=== PATIENT | female | born 1975 | race Caucasian/White ===

== ENCOUNTER 2017-02-07 05:54 | Inpatient (IN) | payer BC ==
[2017-02-07] VITALS (22 sets, daily range): BP systolic 100–131; BP diastolic 54–70; PULSE 76–120; RESP 11–22; Ht 157.5 cm; Wt 74.6 kg
[~2017-02-07] VITALS: Ht 157.5 cm; Wt 74.6 kg
[~2017-02-07 05:54] MED LIST: LEVO88TA3 PO
[2017-02-07] MEDS ORDERED: CEFAZOLIN 2 GM/50 ML (PMX) 50 ML IVPB SCH (06:49)
[2017-02-07] MEDS ORDERED: VANCOMYCIN 500MG/NS (PMX) 100 ML IVPB SCH (07:00)
[2017-02-07] MEDS ORDERED: ROCURONIUM 50 MG INJ ONE ×2 (07:00→07:11)
[2017-02-07] MEDS ORDERED: LACTATED RINGER'S 1,000 ML IV* SCH (07:00)
[2017-02-07] MEDS ORDERED: POLYMYXIN/BACITRACIN 1L IRRIG ONE (07:02)
--- NOTE | 2017-02-07 07:07 | HPN ---
Date/Time of Note Date/Time of Note DATE: 02/07/17 TIME: 07:07 Interval H&P Admission Note Pt. seen H&P reviewed: No system changes COOKIE NUNEZ MD Feb 07, 2017 07:07
[2017-02-07] MEDS ORDERED: MIDAZOLAM 1 MG/ML 2 ML INJ ONE (07:11)
[2017-02-07] MEDS ORDERED: FENTAnyl 50 MCG/ML VIAL ONE (07:11)
[2017-02-07] MEDS ORDERED: HYDROmorphONE 2 MG/ML SYG ONE (07:11)
[2017-02-07] MEDS ORDERED: ONDANSETRON 4 MG INJ ONE (07:11)
[2017-02-07] MEDS ORDERED: PROPOFOL 20 ML ONE (07:11)
[2017-02-07] MEDS ORDERED: SCOPOLAMINE 1.5 MG PATCH ONE (07:12)
[2017-02-07] MEDS ORDERED: DEXAMETHASONE 4 MG/ML 1 ML INJ ONE (07:12)
[2017-02-07] MEDS ORDERED: BUPIVACAINE 0.5%/EPI (SDV) 30 ML INJ ONE (07:13)
[2017-02-07] MEDS ORDERED: THROMBIN 5000 UNIT VIAL ONE (07:13)
[2017-02-07] MEDS ORDERED: METOCLOPRAMIDE 10 MG INJ ONE (08:06)
[2017-02-07] MEDS ORDERED: FAMOTIDINE 20 MG INJ ONE (08:07)
[2017-02-07] MEDS ORDERED: SUGAMMADEX SODIUM 200 MG/2 ML VIAL IV ONE (08:58)
[2017-02-07] MEDS ORDERED: EPHEDrine SULFATE 50 MG/5 ML SYG ONE (09:55)
[2017-02-07] MEDS ORDERED: LABETALOL HCL 20MG INJ IV PRN (10:30)
[2017-02-07] MEDS ORDERED: FENTAnyl 50 MCG/ML VIAL IV PRN ×2 (10:30)
[2017-02-07] MEDS ORDERED: hydrALAzine 20 MG INJ IV PRN (10:30)
[2017-02-07] MEDS ORDERED: MIDAZOLAM 1 MG/ML 2 ML INJ IV PRN (10:30)
[2017-02-07] MEDS ORDERED: ONDANSETRON 4 MG INJ IV PRN ×2 (10:30→14:30)
[2017-02-07] MEDS ORDERED: MEPERIDINE 25 MG INJ IV PRN (10:30)
[2017-02-07] MEDS ORDERED: HYDROmorphONE (0.2 MG/ML) 10ML SYG IV PRN (10:30)
[2017-02-07] MEDS ORDERED: CEFAZOLIN 1 GM INJ ONE (11:47)
--- NOTE | 2017-02-07 14:22 | OPR ---
Date/Time of Note Date/Time of Note DATE: 02/07/17 TIME: 14:07 Operative Report Free Text/Dictation DATE OF OPERATION: 02/07/2017 PREOPERATIVE DIAGNOSES: Spondylolisthesis L4-5 with stenosis and right sided L4 and L5 radiculopathy POSTOPERATIVE DIAGNOSES: Spondylolisthesis L4-5 with stenosis and right sided L4 and L5 radiculopathy OPERATION PERFORMED: 1. Anterior lumbar interbody fusion via transpsoas approach L4-5 2. Placement of anterior interbody device L4-5 3. Placement of posterior spinal segmental instrumentation L4-5 4. Posterior spinal fusion L4-5 5. Use of morselized allograft bone. SURGEON: Cookie Nunez MD ANESTHESIA: General endotracheal. ESTIMATED BLOOD LOSS: <50 cc SURGICAL INDICATION: The patient is a 41 year-old woman who presents with an increasing history of back and right leg pain. She has a past surgical history of a L4-5 decompression and later developed a spondylolisthesis. The patient was found to have an unstable spondylolisthesis at L4-5 with associated stenosis. The patient had failed conservative treatments. Risks, benefits and alternatives to an anterior and posterior spinal fusion with instrumentation were explained to the patient including but not exclusive of bleeding, infection , visceral injury, nerve injury, nonunion, instrumentation failure, lack of symptom relief, myocardial infarction, stroke, and pulmonary embolism, and they wished to proceed. DESCRIPTION OF TECHNIQUE: The patient was identified in the preoperative area and taken to the operating room. Rapid induction of general endotracheal anesthesia was performed. Patient was given 2 g of cefazolin for prophylaxis. The patient was then placed in the ( right side up) lateral decubitus position with an axillary roll placed. Tape was applied across the torso and down the legs for further stabilization of the patient to the table. The right flank was then prepped and draped in the usual sterile manner. Using intraoperative fluoroscopy, the L4-5 disc space was clearly identified. The skin was injected using 0.5% Marcaine with epinephrine. A posterolateral incision was then created using a 10 blade. Further dissection through soft tissue was performed bluntly using Metzenbaum scissors to enter the retroperitoneal space. Manual palpation was used to palpate the peritoneum and the peritoneum was swept in a ventral direction. A direct lateral incision was then created using a 10 blade. Further dissection through soft tissue was again performed bluntly using Metzenbaum scissors, guided manually through the posterolateral incision. The retroperitoneal space was then directly entered. The starting dilator was guided down to the lateral aspect of the psoas muscle, while protecting the peritoneum. Both intraoperative fluoroscopy, as well as neuromonitoring were used to guide the dilator down to the lateral aspect of the disc space, while avoiding the lumbar plexus. A guidewire was then passed through the dilator into the disc space itself. Sequential dilation was performed. A final retractor was applied and stabilized to the table. The retractor was opened gently, just enough to visualize the lateral aspect of the disc space. Fibers of the psoas muscle were directly visualized and gently swept ventrally using a retractor. Again, the surgical field was probe to ensure that no neural elements remained in the surgical field itself. Attention was turned toward the anterior lumbar interbody fusion at L4-5. The lateral anulus was incised using a 15 blade. Disk material was then removed using pituitary rongeurs and curettes. Care was taken to release the contralateral anulus using Martins elevators. The endplates were then decorticated using a rasp. Attention was turned toward placement of the anterior interbody device at L4-5. Trial spacers were inserted. A 12 x 18 x 50 mm PEEK cage was then selected and filled using Osteocel morcellized allograft bone with stem cells. The cage was inserted into the disc space and malleted into place over slides. AP and lateral views of fluoroscopy confirmed the appropriate placement of the cage. The wound was irrigated copiously using normal saline. The fascia was then closed using 0 Vicryl in interrupted fashion. Subcutaneous tissue was closed using 2-0 Vicryl in interrupted fashion. Skin was closed using a running 4-0 Monocryl stitch. The wounds were dressed using Dermabond, sterile gauze and Tegaderm. Attention was turned toward placement of posterior spinal segmental instrumentation at L4-5 after the patient was transferred to a Eduardo table in prone position . The surgical site was prepped and draped is standard fashion. Using intraoperative fluoroscopy, the pedicles were identified at each level. Care was taken to alter the fluoroscopic view to have a true AP at each level. Jamshidi needles were then passed down to the lateral aspect of the pedicles through stab incisions. The Jamshidi needles were malleted into the pedicles. Care was taken to ensure that the needles did not pass the medial wall of the pedicle on the AP view prior to checking that the needle was past the posterior wall of the vertebral body. The needles were then malleted further into the vertebral bodies themselves. Guidewires were passed through the needles and the needles were removed. Taps were applied over the guidewires. Screws were then placed bilaterally into the vertebral bodies. AP and lateral views confirmed appropriate placement of the instrumentation. Attention was turned toward the posterior spinal fusion at L4-5. Rods were selected of the appropriate length and placed into the screw heads. End caps were applied and final tightening was performed using a ghrplo-[id number]-[id number] wrench. The exposed the facet joints were decorticated using a high-speed bur. A small remaining amount of Osteocel was placed into the facet joints to facilitate the posterior fusion. The wound was irrigated copiously using normal saline. The fascia was then closed using 0 Vicryl in interrupted fashion. Subcutaneous tissue was closed using 2-0 Vicryl in interrupted fashion. Skin was closed using a running 4-0 Monocryl stitch. The wounds were dressed using Dermabond, sterile gauze and Tegaderm. The patient was returned to the supine position. The patient was extubated immediately postoperatively and taken to the recovery room in stable condition. IMPLANTS: 1. NuVasive PEEK XLIF cage [id number] lordotic xl cage. 2. NuVasive percutaneous pedicle screw system; 6.5 x40 mm x2 (L4), 6.5x35x2 (L5) . 3. 45mm rods 4. Osteocel pro morcellized allograft bone with stem cells. COMPLICATIONS: None. Procedure Date: Feb 07, 2017 Preoperative Diagnosis Spondylolisthesis L4-5 with stenosis and right sided L4 and L5 radiculopathy Postoperative Diagnosis Spondylolisthesis L4-5 with stenosis and right sided L4 and L5 radiculopathy Surgeon see signature line Flow Specialist none Anesthesia Type: general Estimated Blood Loss: 10 - 50 ml's Transfusion none Specimen None Grafts/Implants IMPLANTS: 1. NuVasive PEEK XLIF cage [id number] lordotic xl cage. 2. NuVasive percutaneous pedicle screw system; 6.5 x40 mm x2 (L4), 6.5x35x2 (L5) . 3. 45mm rods 4. Osteocel pro morcellized allograft bone with stem cells. Complications none Pt Condition Post Procedure: stable Disposition: PACU Procedure Description DESCRIPTION OF TECHNIQUE: The patient was identified in the preoperative area and taken to the operating room. Rapid induction of general endotracheal anesthesia was performed. Patient was given 2 g of cefazolin for prophylaxis. The patient was then placed in the ( right side up) lateral decubitus position with an axillary roll placed. Tape was applied across the torso and down the legs for further stabilization of the patient to the table. The right flank was then prepped and draped in the usual sterile manner. Using intraoperative fluoroscopy, the L4-5 disc space was clearly identified. The skin was injected using 0.5% Marcaine with epinephrine. A posterolateral incision was then created using a 10 blade. Further dissection through soft tissue was performed bluntly using Metzenbaum scissors to enter the retroperitoneal space. Manual palpation was used to palpate the peritoneum and the peritoneum was swept in a ventral direction. A direct lateral incision was then created using a 10 blade. Further dissection through soft tissue was again performed bluntly using Metzenbaum scissors, guided manually through the posterolateral incision. The retroperitoneal space was then directly entered. The starting dilator was guided down to the lateral aspect of the psoas muscle, while protecting the peritoneum. Both intraoperative fluoroscopy, as well as neuromonitoring were used to guide the dilator down to the lateral aspect of the disc space, while avoiding the lumbar plexus. A guidewire was then passed through the dilator into the disc space itself. Sequential dilation was performed. A final retractor was applied and stabilized to the table. The retractor was opened gently, just enough to visualize the lateral aspect of the disc space. Fibers of the psoas muscle were directly visualized and gently swept ventrally using a retractor. Again, the surgical field was probe to ensure that no neural elements remained in the surgical field itself. Attention was turned toward the anterior lumbar interbody fusion at L4-5. The lateral anulus was incised using a 15 blade. Disk material was then removed using pituitary rongeurs and curettes. Care was taken to release the contralateral anulus using Martins elevators. The endplates were then decorticated using a rasp. Attention was turned toward placement of the anterior interbody device at L4-5. Trial spacers were inserted. A 12 x 18 x 50 mm PEEK cage was then selected and filled using Osteocel morcellized allograft bone with stem cells. The cage was inserted into the disc space and malleted into place over slides. AP and lateral views of fluoroscopy confirmed the appropriate placement of the cage. The wound was irrigated copiously using normal saline. The fascia was then closed using 0 Vicryl in interrupted fashion. Subcutaneous tissue was closed using 2-0 Vicryl in interrupted fashion. Skin was closed using a running 4-0 Monocryl stitch. The wounds were dressed using Dermabond, sterile gauze and Tegaderm. Attention was turned toward placement of posterior spinal segmental instrumentation at L4-5 after the patient was transferred to a Eduardo table in prone position . The surgical site was prepped and draped is standard fashion. Using intraoperative fluoroscopy, the pedicles were identified at each level. Care was taken to alter the fluoroscopic view to have a true AP at each level. Jamshidi needles were then passed down to the lateral aspect of the pedicles through stab incisions. The Jamshidi needles were malleted into the pedicles. Care was taken to ensure that the needles did not pass the medial wall of the pedicle on the AP view prior to checking that the needle was past the posterior wall of the vertebral body. The needles were then malleted further into the vertebral bodies themselves. Guidewires were passed through the needles and the needles were removed. Taps were applied over the guidewires. Screws were then placed bilaterally into the vertebral bodies. AP and lateral views confirmed appropriate placement of the instrumentation. Attention was turned toward the posterior spinal fusion at L4-5. Rods were selected of the appropriate length and placed into the screw heads. End caps were applied and final tightening was performed using a floeaf-zeyybul-apvntp wrench. The exposed the facet joints were decorticated using a high-speed bur. A small remaining amount of Osteocel was placed into the facet joints to facilitate the posterior fusion. The wound was irrigated copiously using normal saline. The fascia was then closed using 0 Vicryl in interrupted fashion. Subcutaneous tissue was closed using 2-0 Vicryl in interrupted fashion. Skin was closed using a running 4-0 Monocryl stitch. The wounds were dressed using Dermabond, sterile gauze and Tegaderm. The patient was returned to the supine position. The patient was extubated immediately postoperatively and taken to the recovery room in stable condition. IMPLANTS: 1. NuVasive PEEK XLIF cage [id number] lordotic xl cage. 2. NuVasive percutaneous pedicle screw system; 6.5 x40 mm x2 (L4), 6.5x35x2 (L5) . 3. 45mm rods 4. Osteocel pro morcellized allograft bone with stem cells. COMPLICATIONS: None. COOKIE NUNEZ MD Feb 07, 2017 14:18
[2017-02-07] MEDS ORDERED: NALOXONE (0.4 MG/ML) INJ IV PRN (14:30)
[2017-02-07] MEDS ORDERED: ACETAMINOPHEN 325 MG TAB PO PRN (14:30)
[2017-02-07] MEDS ORDERED: PROCHLORPERAZINE 10 MG TAB PO PRN (14:30)
[2017-02-07] MEDS ORDERED: NACL 0.9% 3 ML SYG IV SCH (14:30)
[2017-02-07] MEDS ORDERED: LORAZEPAM 2 MG INJ ONE (14:38)
[2017-02-07] MEDS: HYDROmorphONE 0.2 MG/ML PCA IV SCH (14:40)
[2017-02-07] MEDS ORDERED: LORAZEPAM 2 MG INJ IV STA (14:47)
--- NOTE | 2017-02-07 15:51 | RADRPT ---
PROCEDURE: Intraoperative imaging of the lumbar spine with fluoroscopy. CLINICAL INDICATION: Back pain. Intraoperative. TECHNIQUE: 7 images of the lumbar spine were obtained in the operating room with an image intensif ier. No radiologist was in attendance. Fluoroscopy time is 497.7 seconds. COMPARISON: 12/09/2014. FINDINGS: For the purposes of this report, the last apparent true disc level is considered to be L5-S1. Based on this, images demonstrate fusion with pedicle screws and connecting rods at L4-5. An intervertebr al cage is also present at L4-5. IMPRESSION: 1. Intraoperative imaging of the lumbar spine. Fusion at L4-5. RPTAT: QQ .Ricky William MD, MD Date Time Electronically viewed and signed by .Ricky William MD, on 02/07/2017 15:51 .R/
[2017-02-07] MEDS: CEFAZOLIN 1 GM/50 ML (PMX) 50 ML IVPB SCH ×2 (17:47→23:58)
[2017-02-07] MEDS ORDERED: LEVOTHYROXINE 88 MCG TAB PO ONE (18:00)
[2017-02-07] MEDS: LEVOTHYROXINE PO SCH (21:00)
[2017-02-08 00:05] VITALS: BP 100/55; PULSE 54; RESP 18
[2017-02-08] MEDS: HYDROmorphONE 0.2 MG/ML PCA IV SCH ×2 (01:23→09:10)
[2017-02-08 02:54] VITALS: BP 93/55; RESP 18
[2017-02-08 05:13] VITALS: BP 104/55; PULSE 94; RESP 18
[2017-02-08 05:27] LABS: HEMOGLOBIN 9.6 g/dl (12.0-16.0)
[2017-02-08 05:42] LABS: CALCIUM 7.8 mg/dl (8.4-10.2); CREATININE 0.62 mg/dl (0.44-1.00); POTASSIUM 3.8 mmol/L (3.5-5.1)
[2017-02-08] MEDS: CEFAZOLIN 1 GM/50 ML (PMX) 50 ML IVPB SCH ×2 (05:50→11:42)
[2017-02-08] MEDS: LEVOTHYROXINE PO SCH (05:52)
[2017-02-08] MEDS ORDERED: LEVOTHYROXINE 88 MCG TAB PO SCH (06:00)
[2017-02-08 08:30] VITALS: BP 99/53; RESP 18
--- NOTE | 2017-02-08 09:00 | CONS ---
Date/Time of Note Date/Time of Note DATE: 02/08/17 TIME: 08:57 Assessment/Plan Assessment/Plan Problems: (1) Hypothyroidism Status: Chronic Comment: Continue with levothyroxine replacement therapy 88 mcg a day Qualifiers: Qualified Code: E03.9 - Acquired hypothyroidism (2) Status post lumbar laminectomy Status: Chronic Comment: This was in 2014. She is now recuperating from her second surgery (3) Status post lumbar spinal fusion Onset Date: ~ 02/07/2017 Status: Acute Comment: She is postoperative and doing well with the only issue being pain control. We will adjust her pain medications Consultation Date/Type/Reason Admit Date/Time Feb 07, 2017 at 05:54 Date of Consultation: Feb 08, 2017 Type of Consultation: Internal medicine Reason for Consultation post-Operative assistance Referring Provider: COOKIE NUNEZ MD Hx of Present Illness Binta 41-year-old woman status post anterior approach lumbar spinal fusion. Constitutional: no complaints Eyes: no complaints Respiratory: no complaints Cardiovascular: no complaints Gastrointestinal: no complaints Genitourinary: no complaints Musculoskeletal: no complaints Skin: no complaints Neurologic: no complaints Past Medical History Medical History: hypothyroid, other (History lumbar spinal stenosis) Past Surgical History Past Surgical Hx: other (Status post lumbar laminectomy 2014) Family History Significant Family History: no pertinent family hx Social History Alcohol Use: rarely Smoking Status: Never smoker Drug Use: none Other Social History Born [facility] and raised. 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 lives with spouse and [id number] Exam/Review of Systems Vital Signs Vitals Vital Signs Date Time Temp Pulse Resp B/P Pulse Ox O2 Delivery O2 Flow Rate FiO2 02/08/17 08:30 98.0 94 18 99/53 95 02/08/17 05:13 Nasal Cannula 2.0 Intake and Output 02/07/17 02/07/17 02/08/17 15:00 23:00 07:00 Intake Total 2200 ml 50 ml 600 ml Output Total 470 ml 500 ml 500 ml Balance 1730 ml -450 ml 100 ml Exam Constitutional: alert, oriented ENMT: mucosa pink and moist, nl external ears & nose, nl lips & teeth, nl nasal mucosa & septum Neck: non-tender, supple Respiratory: clear to auscultation, normal air movement Cardiovascular: nl pulses, regular rate and rhythm Gastrointestinal: nl liver, spleen, non-tender, soft Extremities: normal pulses Neurological: INSURANCE OFFICE MANAGER II-XII intact, nl mental status, nl speech, nl strength, other (Moves both lower extremities well) Results Result Diagram: 02/08/1743002/08/17 0431 Results 24 hrs Laboratory Tests Test 02/08/17 04:31 02/08/17 05:50 Hemoglobin 9.6 L Hematocrit 29.0 L Sodium Level 138 Potassium Level 3.8 Chloride Level 109 Carbon Dioxide Level 25 Anion Gap 8 Blood Urea Nitrogen 7 Creatinine 0.62 Glucose Level 86 Calcium Level 7.8 L Lab Scanned Report LAB Medications Medications Current Medications Lactated Ringer's 1,000 ml @ 0 mls/hr Q0M IV* ; Start 02/07/17 at 07:00 Cefazolin Sodium (Ancef 1 Gm/50 ml (Pmx)) 50 ml @ 100 mls/hr Q6 IVPB Last administered on 02/08/17 05:50; Admin Dose 100 MLS/HR; Start 02/07/17 at 18: 00; Stop 02/08/17 at 12:29 Prochlorperazine (Compazine) 10 mg Q4H PRN PO NAUSEA AND/OR VOMITING; Start at 14:30 Ondansetron HCl (Zofran Inj) 4 mg Q6H PRN IV NAUSEA AND/OR VOMITING Last administered on 02/07/17 17:00; Admin Dose 4 MG; Start 02/07/17 at 14:30 Acetaminophen (Tylenol Tab) 650 mg Q4H PRN PO TEMP GREATER THAN 101F OR WEN; Start 02/07/17 at 14:30 Hydromorphone HCl (Dilaudid HAMMER DRIVER) Q4PCA IV Last administered on 02/08/17 01: 23; Admin Dose 6 MG; Start 02/07/17 at 14:30 Naloxone HCl (Narcan) 0.2 mg Q2M PRN IV RR 8 BREATHS/MIN OR LESS; Start at 14:30 Patient Own Medication 1 ea DAILY@06 PO Last administered on 02/08/17 05:52; Admin Dose 1 EA; Start 02/07/17 at 21:00 DAIVD HENAO MD Feb 08, 2017 09:00
[2017-02-08] MEDS ORDERED: HYDROmorphONE 0.2 MG/ML PCA IV SCH ×2 (09:30→10:30)
[2017-02-08] MEDS ORDERED: HYDROmorphONE 2 MG/ML SYG IV PRN (12:00)
[2017-02-08] MEDS ORDERED: HYDROmorphONE 1 MG/ML SYG IV PRN (12:00)
[2017-02-08] MEDS: OXYCODONE/ACETAMINOPHEN (10/325) TAB PO PRN ×3 (12:21→21:04)
--- NOTE | 2017-02-08 12:42 | CONS ---
Date/Time of Note Date/Time of Note DATE: 02/08/17 TIME: 12:37 Consult Date/Type/Reason Admit Date/Time Feb 07, 2017 at 05:54 Initial Consult Date 02/08/17 Type of Consultation: Ortho Spine Ordering Provider: COOKIE NUNEZ MD Subjective Patient is a pleasant 41-year-old female who is currently postop day #1 status post anterior lumbar interbody fusion L4-5 with posterior spinal instrumentation. She currently denies any nausea. She denies any significant abdominal pain. Her central complaint is low back pain with muscle spasms. She is currently on a Dilaudid DIAMOND CLEANER which is not helping significantly with her pain. Denies any significant leg pain or numbness. She was up and walking today with physical therapy. She had no acute overnight events. Objective Vital Signs Date Time Temp Pulse Resp B/P Pulse Ox O2 Delivery O2 Flow Rate FiO2 02/08/17 12:32 18 02/08/17 08:30 98.0 94 99/53 95 02/08/17 05:13 Nasal Cannula 2.0 Intake and Output 02/07/17 02/07/17 02/08/17 14:59 22:59 06:59 Intake Total 2200 ml 50 ml 600 ml Output Total 470 ml 500 ml 500 ml Balance 1730 ml -450 ml 100 ml Exam General: Alert and oriented 3 no acute distress Spine exam: 5 out of 5 strength in the bilateral tibialis anterior, gastrocnemius soleus, EHL 4 out of 5 strength in bilateral knee extensors and hip flexors gross sensation to light touch is intact in the L3-S1 nerve root distributions. Posterior lateral incisions are clean dry and intact. Abdominal exam: Mild distention, nontender, positive bowel sounds Results/Medications Result Diagram: 02/08/17 0431 02/08/17 0431 Results 24 hrs Laboratory Tests Test 02/08/17 04:31 02/08/17 05:50 Hemoglobin 9.6 L Hematocrit 29.0 L Sodium Level 138 Potassium Level 3.8 Chloride Level 109 Carbon Dioxide Level 25 Anion Gap 8 Blood Urea Nitrogen 7 Creatinine 0.62 Glucose Level 86 Calcium Level 7.8 L Lab Scanned Report LAB Medications Current Medications Lactated Ringer's (Lr) 1,000 ml @ 0 mls/hr Q0M IV* ; Start 02/07/17 at 07:00 Prochlorperazine (Compazine) 10 mg Q4H PRN PO NAUSEA AND/OR VOMITING; Start at 14:30 Ondansetron HCl (Zofran Inj) 4 mg Q6H PRN IV NAUSEA AND/OR VOMITING Last administered on 02/07/17 17:00; Admin Dose 4 MG; Start 02/07/17 at 14:30 Acetaminophen (Tylenol Tab) 650 mg Q4H PRN PO TEMP GREATER THAN 101F OR WEN; Start 02/07/17 at 14:30 Naloxone HCl (Narcan) 0.2 mg Q2M PRN IV RR 8 BREATHS/MIN OR LESS; Start at 14:30 Patient Own Medication 1 ea DAILY@06 PO Last administered on 02/08/17 05:52; Admin Dose 1 EA; Start 02/07/17 at 21:00 Hydromorphone HCl (Dilaudid DIAMOND CLEANER) Q4PCA IV ; Start 02/08/17 at 10:30 Methocarbamol (Robaxin) 500 mg TID PO ; Start 02/08/17 at 13:00 Oxycodone/ Acetaminophen (Endocet (10/ 325)) 1 tab Q4H PRN PO PAIN Last administered on 02/08/17 12:21; Admin Dose 1 TAB; Start 02/08/17 at 12:00 Hydromorphone HCl (Dilaudid) 1 mg Q3H PRN IV PAIN LEVEL 4-6; Start 02/08/17 at 12:00 Hydromorphone HCl (Dilaudid) 2 mg Q3 PRN IV PAIN LEVEL 6-10; Start 02/08/17 at 12:00 Assessment/Plan Additional Assessment/Plan Assessment/plan: 41-year-old female postop day #1 status post anterior lumbar interbody fusion with posterior spinal instrumentation at L4-5 for iatrogenic spondylolisthesis 1. Continue physical therapy and lumbosacral orthosis when out of bed as needed 2. Discontinue DIAMOND CLEANER 3. Discontinue Garcia catheter 4. Start Robaxin 500 mg p.o. 3 times daily as needed muscle spasms 5. Start Percocet 10/325 mg p.o. every 4 hours as needed pain 6. Start Dilaudid 1-2 mg IV every 3 hours as needed severe breakthrough pain 7. Assessment for transfer to rehab unit 8. Follow-up CBC and BMP tomorrow COOKIE NUNEZ MD Feb 08, 2017 12:42
[2017-02-08] MEDS: METHOCARBAMOL 500 MG TAB PO SCH ×2 (13:29→21:04)
[2017-02-08 15:36] VITALS: BP 101/61; RESP 19
[2017-02-08] MEDS ORDERED: DIPHENHYDRAMINE 25 MG CAP PO PRN (19:30)
[2017-02-08] MEDS ORDERED: DIPHENHYDRAMINE 50 MG INJ IV PRN (19:30)
[2017-02-08 20:00] VITALS: BP 110/59; RESP 19
[2017-02-09 02:00] VITALS: BP 120/70; RESP 19
[2017-02-09] MEDS: OXYCODONE/ACETAMINOPHEN (10/325) TAB PO PRN ×4 (04:19→18:25)
[2017-02-09] MEDS: LEVOTHYROXINE PO SCH (05:32)
[2017-02-09 06:17] LABS: BASOPHILS % 0.3 % (0.0-2.0); EOSINOPHILS # 0.1 10^3/ul (0.0-0.5); EOSINOPHILS % 0.6 % (0.0-7.0); HEMATOCRIT 30.3 % (37.0-47.0); HEMOGLOBIN 9.8 g/dl (12.0-16.0); LYMPHOCYTES # 2.9 10^3/ul (0.8-2.9); LYMPHOCYTES % 20.1 % (15.0-51.0); MEAN CORPUSCULAR HEMOGLOBIN 30.6 pg (29.0-33.0); MEAN CORPUSCULAR HGB CONC 32.3 g/dl (32.0-37.0); MEAN CORPUSCULAR VOLUME 94.7 fl (82.0-101.0); MONOCYTE # 0.9 10^3/ul (0.3-0.9); MONOCYTES % 6.6 % (0.0-11.0); NEUTROPHIL # 10.3 10^3/ul (1.6-7.5); PLATELET COUNT 241 10^3/UL (140-415); RED CELL DISTRIBUTION WIDTH 13.4 % (11.5-14.5); WHITE BLOOD COUNT 14.2 10^3/ul (4.8-10.8)
[2017-02-09 07:14] LABS: CALCIUM 7.8 mg/dl (8.4-10.2); CREATININE 0.75 mg/dl (0.44-1.00); POTASSIUM 3.4 mmol/L (3.5-5.1)
[2017-02-09] MEDS ORDERED: LEVOTHYROXINE 88 MCG TAB PO SCH (07:20)
[2017-02-09] MEDS ORDERED: BISACODYL 10 MG SUPP PR PRN (08:00)
[2017-02-09 08:43] VITALS: BP 101/50; RESP 17
[2017-02-09] MEDS: METHOCARBAMOL 500 MG TAB PO SCH ×2 (09:48→12:32)
[2017-02-09] MEDS: MAGNESIUM HYDROXIDE 30ML CUP PO PRN ×2 (09:52→18:25)
--- NOTE | 2017-02-09 12:43 | RADRPT ---
PROCEDURE: XR Lumbar Spine. CLINICAL INDICATION: Status post posterior fusion of L4-5. TECHNIQUE: Standing AP and lateral views of the lumbar spine were obtained. COMPARISON: 02/07/2017. FINDINGS: There is normal vertebral mineralization. L4-L5 posterior fusion with bilateral transpedicular screw s, 2 vertical rods, and intervertebral cage graft are present. There is no interval vertebral body h eight loss. There is an approximate 4 mm grade 1 spondylolisthesis of L4 relative to L5 which previo usly measured approximately 6 mm. IMPRESSION: 1. L4-5 posterior fusion with bilateral transpedicular screws, 2 vertical rods, and intervening cag e graft. 2. 4 mm grade 1 spondylolisthesis of L4 relative to L5 is which previously measured approximately 5 .8 mm. RPTAT: HRSR Physician Dick Date Time Electronically viewed and signed by Ann Marie Cruz Physician on 02/09/2017 12:43 RR/
--- NOTE | 2017-02-09 15:36 | CONS ---
Date/Time of Note Date/Time of Note DATE: 02/09/17 TIME: 15:34 Assessment/Plan Assessment/Plan Chief Complaint/Hosp Course Binta 41-year-old woman status post anterior approach lumbar spinal fusion. Problems: (1) Hypothyroidism Status: Chronic Comment: Stable on replacement therapy. Qualifiers: Hypothyroidism type: acquired Qualified Code: E03.9 - Acquired hypothyroidism (2) Status post lumbar spinal fusion Onset Date: ~ 02/07/2017 Status: Acute Comment: Pain has adequate control. Regarding the patient's complaints of dysesthesia and decreased sensation of the left lower extremity I am not finding significant abnormalities on exam but will defer off to the operative surgeon Consultation Date/Type/Reason Admit Date/Time Feb 07, 2017 at 05:54 Initial Consult Date 02/08/17 Type of Consultation: Internal medicine Reason for Consultation Postoperative assistance Referring Provider: COOKIE NUNEZ MD 24 HR Interval Summary Constitutional: no complaints Detailed Summary Respiratory: no complaints Cardiovascular: no complaints Gastrointestinal: no complaints Neurologic: other (Complains of dysesthesia without allodynia of the left lower extremity on the anterior below-knee medial lateral aspects; normal motor function by report) Exam/Review of Systems Vital Signs Vitals Vital Signs Date Time Temp Pulse Resp B/P Pulse Ox O2 Delivery O2 Flow Rate FiO2 02/09/17 08:43 98.9 95 17 101/50 98 02/08/17 05:13 Nasal Cannula 2.0 Intake and Output 02/08/17 02/08/17 02/09/17 14:59 22:59 06:59 Intake Total 50 ml 640 ml Output Total 460 ml Balance 50 ml 180 ml Exam Constitutional: alert, oriented Respiratory: clear to auscultation, normal air movement Cardiovascular: nl pulses, regular rate and rhythm Extremities: normal pulses Neurological: other (Normal monofilament sensation throughout the legs but the patient does describe a change in the quality of the sensation in the left lower extremity) Results Result Diagram: 02/09/17 0426 02/09/17 0426 Results 24 hrs Laboratory Tests Test 02/09/17 04:26 White Blood Count 14.2 #H Red Blood Count 3.20 L Hemoglobin 9.8 L Hematocrit 30.3 L Mean Corpuscular Volume 94.7 Mean Corpuscular Hemoglobin 30.6 Mean Corpuscular Hemoglobin Concent 32.3 Red Cell Distribution Width 13.4 Platelet Count 241 Mean Platelet Volume 11.0 #H Neutrophils % 72.0 Lymphocytes % 20.1 Monocytes % 6.6 Eosinophils % 0.6 Basophils % 0.3 Nucleated Red Blood Cells % 0.0 Neutrophils # 10.3 H Lymphocytes # 2.9 Monocytes # 0.9 Eosinophils # 0.1 Basophils # 0.0 Nucleated Red Blood Cells # 0.0 Sodium Level 139 Potassium Level 3.4 L Chloride Level 105 Carbon Dioxide Level 27 Anion Gap 10 Blood Urea Nitrogen 8 Creatinine 0.75 Glucose Level 95 Calcium Level 7.8 L Medications Medications Current Medications Lactated Ringer's (Lr) 1,000 ml @ 0 mls/hr Q0M IV* ; Start 02/07/17 at 07:00 Prochlorperazine (Compazine) 10 mg Q4H PRN PO NAUSEA AND/OR VOMITING; Start at 14:30 Ondansetron HCl (Zofran Inj) 4 mg Q6H PRN IV NAUSEA AND/OR VOMITING Last administered on 02/07/17 17:00; Admin Dose 4 MG; Start 02/07/17 at 14:30 Acetaminophen (Tylenol Tab) 650 mg Q4H PRN PO TEMP GREATER THAN 101F OR WEN; Start 02/07/17 at 14:30 Naloxone HCl (Narcan) 0.2 mg Q2M PRN IV RR 8 BREATHS/MIN OR LESS; Start at 14:30 Patient Own Medication 1 ea DAILY@06 PO Last administered on 02/09/17 05:32; Admin Dose 1 EA; Start 02/07/17 at 21:00 Hydromorphone HCl (Dilaudid STOP ATTACHER) Q4PCA IV ; Start 02/08/17 at 10:30 Methocarbamol (Robaxin) 500 mg TID PO Last administered on 02/09/17 12:32; Admin Dose 500 MG; Start 02/08/17 at 13:00 Oxycodone/ Acetaminophen (Endocet (10/ 325)) 1 tab Q4H PRN PO PAIN Last administered on 02/09/17 14:30; Admin Dose 1 TAB; Start 02/08/17 at 12:00 Hydromorphone HCl (Dilaudid) 1 mg Q3H PRN IV PAIN LEVEL 4-6; Start 02/08/17 at 12:00 Hydromorphone HCl (Dilaudid) 2 mg Q3 PRN IV PAIN LEVEL 6-10 Last administered on 02/08/17 14:07; Admin Dose 2 MG; Start 02/08/17 at 12:00 Diphenhydramine HCl (Benadryl) 25 mg Q6H PRN IV ITCHING; Start 02/08/17 at 19: 30 Diphenhydramine HCl (Benadryl) 25 mg Q6 PRN PO ITCHING; Start 02/08/17 at 19: 30 Magnesium Hydroxide (Milk Of Mag) 30 ml BID PRN PO CONSTIPATION Last administered on 02/09/17 09:52; Admin Dose 30 ML; Start 02/09/17 at 08:00 Bisacodyl (Dulcolax Supp) 10 mg DAILY PRN DE CONSTIPATION; Start 02/09/17 at 08:00 DAVID HENAO MD Feb 09, 2017 15:36
--- NOTE | 2017-02-09 17:15 | PDOCDIS ---
Discharge Instructions CONDITION Patient Condition: Good HOME CARE INSTRUCTIONS: Diet Instructions: RegularSpecial Diet: REGULAR ACTIVITY: Activity Restrictions: Avoid heavy lifting Bathing Restrictions: Shower FOLLOW UP/APPOINTMENTS Follow-up Plan Follow-up with Dr. Nunez in 2 weeks COOKIE NUNEZ MD Feb 09, 2017 17:15
== END 2017-02-09 19:00 | disposition home or self-care (01) | DRG 460 ==
LOC: REC 05:54 → EDSTATUS 07:30 → MS1 16:20
PROVIDERS: ADMIT Orthopaedic Surgery; ATTEND Orthopaedic Surgery
PROC: 0SG00AJ Fusion of Lumbar Vertebral Joint with Interbody Fusion Device, Posterior Approach, Anterior Column, Open Approach (ICD-10-PCS; 2017-02-07)
PROC: 0SG00A0 Fusion of Lumbar Vertebral Joint with Interbody Fusion Device, Anterior Approach, Anterior Column, Open Approach (ICD-10-PCS; principal; 2017-02-07 07:30)
DX: M43.16 Spondylolisthesis, lumbar region (principal); E03.9 Hypothyroidism, unspecified; E78.5 Hyperlipidemia, unspecified; M48.061 Spinal stenosis, lumbar region without neurogenic claudication; M54.16 Radiculopathy, lumbar region; G47.33 Obstructive sleep apnea (adult) (pediatric)
CPT/HCPCS: 72100; 72110; 80048; 85014; 85018; 85025; 87086; 97110; 97116; 97163; 97530; J0690; J1100; J1170; J1200; J1644; J2060; J2175; J2250; J2405; J2765; J3010; J3370